=== PATIENT | male | born 1975 | race Caucasian/White ===

== ENCOUNTER 2020-08-15 11:35 | Emergency (ER) | payer SELFPAY ==
[~2020-08-15] VITALS: Ht 177.8 cm; Wt 86.2 kg
--- NOTE | 2020-08-15 11:37 | NUR ---
Patient BIBA BLS accompanied by [place] [employer], transferred to bed 6. RN evaluating the patient at bedside.
[2020-08-15 11:38] VITALS: BP 139/74
--- NOTE | 2020-08-15 11:40 | NUR ---
44 YO M BIBA FROM [facility] FOR C/C OF ALOC AFTER GETTING TASERED IN LEFT LOWER BACK AND LEFT THIGH DURING A FOOT PURSUIT WITH [place] [employer]. LEFT LOWER BACK PROBE STILL IN PLACE AT THIS TIME. PT IS NONVERBAL AND WITHOLDING INFORMATION. [place] [employer] AT BEDSIDE FOR PREBOOK MEDICAL CLEARANCE. PER PD REPORT PT WAS FOUND WITH METH ON HIS PERSON AND DID NOT LOOSE CONCIOUSNESS AFTER TASER WAS USED. EQUAL CHEST RISE AND FALL. BED LOCKED AND IN LOWEST POSITION. SIDE RAILS X2. OFFICER JOSE EDUARDO BELLE #[id number] PROVIDING INFO. MED HX: UNOBTAINABLE
--- NOTE | 2020-08-15 11:53 | NUR ---
DR. ARORA AT BEDSIDE EXAMINING PT AND REMOVING PROBE FROM LEFT LOWER BACK
[2020-08-15 12:16] VITALS: BP 139/74
--- NOTE | 2020-08-15 12:16 | NUR ---
DISCHARGE INSTRUCTIONS GIVEN TO OFFICER JOSE EDUARDO WITH ORIGINAL PREBOOK FORM. PATIENT EXAMINED BY DR. ARORA AND FOUND MEDICALLY CLEARED FOR BOOKING. PATIENT RELEASED IN CUSTODY IN STABLE CONDITION.
== END 2020-08-15 12:16 ==
LOC: MED 11:35
DX: S30.850A Superficial foreign body of lower back and pelvis, initial encounter (principal); Z02.89 Encounter for other administrative examinations; X58.XXXA Exposure to other specified factors, initial encounter; Y93.89 Activity, other specified; Y92.89 Other specified places as the place of occurrence of the external cause; Y99.8 Other external cause status
CPT/HCPCS: 10120; 99284